=== PATIENT | female | born 1990 ===

== ENCOUNTER → 2022-07-17 13:05 | Outpatient (BNVA) | payer OTHER, SELFPAY | DX: Z13.89 Encounter for screening for other disorder (principal) | CPT/HCPCS: 87811; 99203; C9803 ==

== ENCOUNTER 2022-11-28 08:00 | Outpatient (RCR) | payer OTHER, SELFPAY | END 2022-11-28 09:08 | disposition home or self-care (01) | LOC: HO.PT 08:00 | PROVIDERS: PCP Family Medicine; Visit Provider Family Medicine | DX: M54.2 Cervicalgia (principal) | CPT/HCPCS: 97035; 97110; 97112; 97140; 97161 ==

== ENCOUNTER → 2023-01-02 09:09 | Outpatient (BNVA) | payer OTHER, SELFPAY | PROVIDERS: PCP Family Medicine; Visit Provider Surgery | DX: Z13.89 Encounter for screening for other disorder (principal) ==

== ENCOUNTER → 2023-02-13 13:33 | Outpatient (BNVA) | payer BC, SELFPAY | PROVIDERS: PCP Family Medicine; Visit Provider Surgery | DX: Z13.89 Encounter for screening for other disorder (principal) ==

== ENCOUNTER 2023-09-04 12:15 | Outpatient (REF) | payer BC, SELFPAY ==
[2023-09-05 09:09] LABS: Lyme Abs Screen <0.90 index
[2023-09-06 01:59] LABS: Ceruloplasmin 29 mg/dL (18-53)
== END 2023-09-04 12:16 | disposition home or self-care (01) ==
LOC: HO.LAB 12:15
PROVIDERS: Internal Medicine; PCP Family Medicine; Visit Provider Psychiatry & Neurology Neurology
DX: R20.0 Anesthesia of skin (principal)
CPT/HCPCS: 36415; 82390; 86617; 86618

== ENCOUNTER 2024-03-19 14:28 | Outpatient (REF) | payer BC, SELFPAY ==
[2024-03-19 15:19] LABS: Hematocrit 35.2 % (37.0-47.0); Mean Corpuscular HGB Conc 34.1 g/dl (31.0-35.0); Mean Corpuscular Hemoglobin 30.4 pg (27.0-33.0); Mean Corpuscular Volume 89.1 fL (80.0-98.0); Mean Platelet Volume 10.4 fL (9.4-12.3); Platelet Count 198 X10*3/uL (160-400); Red Blood Count 3.95 X10*6/uL (4.20-5.50); Red Cell Distribution Width 13.3 % (11.0-16.0); White Blood Count 12.4 X10*3/uL (4.8-10.8)
[2024-03-19 15:44] LABS: Creatinine Urine 217.71 mg/dL; Protein/Creatinine Ratio, Ur 0.06 (<0.2); Total Protein Urine Random 12 mg/dL (<12)
[2024-03-19 15:47] LABS: Alanine Aminotransferase 58 U/L (0-31); Aspartate Amino Transferase 26 U/L (5-31); Blood Urea Nitrogen 8 mg/dL (9-16); Estimated Glomerular Filt Rate > 60; Uric Acid 3.7 mg/dL (2.4-5.7)
== END 2024-03-19 14:29 | disposition home or self-care (01) ==
LOC: HO.LAB 14:28
PROVIDERS: Visit Provider Advanced Practice Midwife
DX: R10.11 Right upper quadrant pain (principal); Z34.90 Encounter for supervision of normal pregnancy, unspecified, unspecified trimester
CPT/HCPCS: 36415; 82565; 82570; 84156; 84450; 84460; 84520; 84550; 85027

== ENCOUNTER 2024-04-14 13:36 | Outpatient (REF) | payer OTHER, SELFPAY ==
[2024-04-14 14:46] LABS: Alanine Aminotransferase 17 U/L (0-31); Albumin Level 3.6 g/dL (3.5-5.0); Alkaline Phosphatase 70 U/L (39-117); Aspartate Amino Transferase 14 U/L (5-31); Bilirubin Direct 0.1 mg/dL (0.0-0.5); Bilirubin Total 0.3 mg/dL (0.0-1.0); Total Protein 6.4 g/dL (6.5-8.0)
== END 2024-04-14 13:37 | disposition home or self-care (01) ==
LOC: HO.LAB 13:36
PROVIDERS: Visit Provider Advanced Practice Midwife
DX: R94.5 Abnormal results of liver function studies (principal); Z34.90 Encounter for supervision of normal pregnancy, unspecified, unspecified trimester
CPT/HCPCS: 36415; 80076

== ENCOUNTER 2024-05-13 08:40 | Outpatient (REF) | payer OTHER, SELFPAY ==
[2024-05-13 10:23] LABS: Glucose Fasting 93 mg/dL (60-99)
[2024-05-13 11:30] LABS: Glucose 1 Hour 174 mg/dL
[2024-05-13 12:38] LABS: Glucose 2 Hour 129 mg/dL
[2024-05-13 13:36] LABS: Glucose 3 Hour 47 mg/dL
== END 2024-05-13 08:41 | disposition home or self-care (01) ==
LOC: HO.LAB 08:40
PROVIDERS: PCP Family Medicine; Visit Provider Obstetrics & Gynecology
DX: R89.9 Unspecified abnormal finding in specimens from other organs, systems and tissues (principal)
CPT/HCPCS: 36415; 82951

== ENCOUNTER 2024-06-23 07:46 | Outpatient (REF) | payer OTHER, SELFPAY ==
[2024-06-23 08:25] LABS: MANUAL DIFF FLAG NO
[2024-06-23 10:16] LABS: Basophils Percent Auto 0.5 % (0-2); Eosinophils Absolute Auto 0.2 X10*3/uL (0.0-0.4); Eosinophils Percent Auto 2.5 % (0-4); Hemoglobin 12.7 g/dl (12.0-16.0); Imm Gran Abs Auto 0.05 X10*3/uL (0.00-0.03); Imm Gran Pct Auto 0.6 % (0.0-0.4); Lymphocytes Absolute Auto 1.2 X10*3/uL (1.2-4.9); Lymphocytes Percent Auto 14.5 % (20-40); Mean Corpuscular HGB Conc 34.3 g/dl (31.0-35.0); Mean Corpuscular Hemoglobin 30.1 pg (27.0-33.0); Mean Corpuscular Volume 87.7 fL (80.0-98.0); Mean Platelet Volume 11.8 fL (9.4-12.3); Monocytes Absolute Auto 0.6 X10*3/uL (0.1-1.2); Monocytes Percent Auto 6.9 % (2-11); Platelet Count 147 X10*3/uL (160-400); Red Blood Count 4.22 X10*6/uL (4.20-5.50); Red Cell Distribution Width 12.6 % (11.0-16.0)
[2024-06-23 11:42] LABS: Alanine Aminotransferase 10 U/L (0-31); Aspartate Amino Transferase 12 U/L (5-31); Blood Urea Nitrogen 8 mg/dL (9-16); Estimated Glomerular Filt Rate > 60; Lactate Dehydrogenase 152 U/L (122-220); Uric Acid 4.7 mg/dL (2.4-5.7)
[2024-06-23 11:44] LABS: Creatinine Urine 114.61 mg/dL; Microalbum/Creatinine Ratio Ur 6.1 ug/mg cr (<30)
== END 2024-06-23 07:47 | disposition home or self-care (01) ==
LOC: HO.LAB 07:46
PROVIDERS: Advanced Practice Midwife; PCP Family Medicine; Visit Provider Midwife
DX: O26.619 Liver and biliary tract disorders in pregnancy, unspecified trimester (principal); O13.9 Gestational [pregnancy-induced] hypertension without significant proteinuria, unspecified trimester
CPT/HCPCS: 82043; 82239; 82565; 82570; 83615; 84450; 84460; 84520; 84550; 85025

== ENCOUNTER 2024-07-15 08:00 | Outpatient (RCR) | payer OTHER, SELFPAY | END 2024-08-26 08:11 | disposition home or self-care (01) | LOC: HO.PT 08:00 | PROVIDERS: PCP Family Medicine; Visit Provider Advanced Practice Midwife | DX: R39.81 Functional urinary incontinence (principal) | CPT/HCPCS: 97110; 97112; 97140; 97161 ==

== ENCOUNTER 2024-09-21 15:24 | Outpatient (REF) | payer OTHER, SELFPAY ==
[2024-09-21 18:14] LABS: Alanine Aminotransferase 104 U/L (0-31); Albumin Level 4.2 g/dL (3.5-5.0); Alkaline Phosphatase 130 U/L (39-117); Anion Gap 10 (12-20); Aspartate Amino Transferase 47 U/L (5-31); Bilirubin Total 0.2 mg/dL (0.0-1.0); Blood Urea Nitrogen 20 mg/dL (9-16); Calcium 9.1 mg/dL (8.4-10.2); Carbon Dioxide 28 mmol/L (22-29); Chloride 106 mmol/L (96-108); Estimated Glomerular Filt Rate > 60; Glucose Random 100 mg/dL (60-115); Potassium 3.9 mmol/L (3.3-5.1); Sodium 140 mmol/L (135-145); Total Protein 7.1 g/dL (6.5-8.0)
== END 2024-09-21 15:25 | disposition home or self-care (01) ==
LOC: HO.LAB 15:24
PROVIDERS: PCP Family Medicine; Visit Provider Family Medicine
DX: R74.01 Elevation of levels of liver transaminase levels (principal)
CPT/HCPCS: 36415; 80053

== ENCOUNTER 2024-10-20 11:02 | Outpatient (REF) | payer OTHER, SELFPAY ==
[2024-10-20 11:32] LABS: MANUAL DIFF FLAG NO
[2024-10-20 12:08] LABS: Basophils Absolute Auto 0.1 X10*3/uL (0.0-0.2); Basophils Percent Auto 0.8 % (0-2); Eosinophils Absolute Auto 0.5 X10*3/uL (0.0-0.4); Eosinophils Percent Auto 5.8 % (0-4); Hematocrit 41.4 % (37.0-47.0); Hemoglobin 14.1 g/dl (12.0-16.0); Imm Gran Abs Auto 0.04 X10*3/uL (0.00-0.03); Imm Gran Pct Auto 0.5 % (0.0-0.4); Lymphocytes Absolute Auto 1.7 X10*3/uL (1.2-4.9); Lymphocytes Percent Auto 18.8 % (20-40); Mean Corpuscular HGB Conc 34.1 g/dl (31.0-35.0); Mean Corpuscular Hemoglobin 30.2 pg (27.0-33.0); Mean Corpuscular Volume 88.7 fL (80.0-98.0); Mean Platelet Volume 10.4 fL (9.4-12.3); Monocytes Absolute Auto 0.5 X10*3/uL (0.1-1.2); Monocytes Percent Auto 5.4 % (2-11); Neutrophils Absolute Auto 6.1 x10*3/uL (2.0-8.3); Neutrophils Percent Auto 68.7 % (45-73); Platelet Count 224 X10*3/uL (160-400); Red Blood Count 4.67 X10*6/uL (4.20-5.50); White Blood Count 8.9 X10*3/uL (4.8-10.8)
[2024-10-20 12:14] LABS: Prothrombin Time 11.3 SEC (10.9-12.4)
[2024-10-20 12:48] LABS: Alanine Aminotransferase 81 U/L (0-31); Albumin Level 4.3 g/dL (3.5-5.0); Alkaline Phosphatase 128 U/L (39-117); Anion Gap 9 (12-20); Aspartate Amino Transferase 35 U/L (5-31); Bilirubin Total 0.3 mg/dL (0.0-1.0); Blood Urea Nitrogen 21 mg/dL (9-16); Calcium 9.7 mg/dL (8.4-10.2); Carbon Dioxide 30 mmol/L (22-29); Chloride 105 mmol/L (96-108); Estimated Glomerular Filt Rate > 60; Glucose Random 86 mg/dL (60-115); Potassium 4.3 mmol/L (3.3-5.1); Sodium 140 mmol/L (135-145); Total Protein 7.4 g/dL (6.5-8.0)
== END 2024-10-20 11:03 | disposition home or self-care (01) ==
LOC: HO.LAB 11:02
PROVIDERS: PCP Family Medicine; Visit Provider Family Medicine
DX: R74.8 Abnormal levels of other serum enzymes (principal); Z79.01 Long term (current) use of anticoagulants
CPT/HCPCS: 36415; 80053; 85025; 85610

== ENCOUNTER 2024-10-22 07:46 | Outpatient (REF) | payer OTHER, SELFPAY ==
--- NOTE | ~2024-10-22 | US_ITS ---
EXAMINATION: US ABDOMEN COMPLETE CLINICAL INFORMATION: Elevated LFTs. COMPARISON: None available. TECHNIQUE: Real-time imaging of the abdominal viscera. FINDINGS: PANCREAS: The visualized portion of the pancreas head and body are normal, portion of the pancreatic body and tail, not visualized are obscured by bowel gas. ABDOMINAL AORTA: The proximal, mid, and distal segments are normal in caliber. INFERIOR VENA CAVA: Visualized portions are normal. LIVER: The liver is normal in size. The liver contour is normal. Mildly echogenic liver parenchyma, this can be seen in the setting of hepatic steatosis or liver parenchymal disease. No focal hepatic lesion. There is no intrahepatic biliary duct dilatation seen. GALLBLADDER: The gallbladder is physiologically distended without evidence of stones, sludge, polyps, wall thickening or pericholecystic fluid. COMMON BILE DUCT: Normal in caliber measuring 0.5 cm in diameter. RIGHT KIDNEY: No hydronephrosis. No renal calculi or focal parenchymal lesions. The kidney measures 10.0 cm in maximum dimension. LEFT KIDNEY: No hydronephrosis. No renal calculi or focal parenchymal lesions. The kidney measures 10.5 cm in maximum dimension. SPLEEN: The spleen measures 12.3 cm in maximum dimension. FREE FLUID: None. US/US abdomen complete IMPRESSION: * Mildly echogenic liver parenchyma, this can be seen in the setting of hepatic steatosis. Please correlate clinically. * Ultrasound otherwise normal. No ultrasound explanation for patient's pain symptoms. Electronically signed by: Crescencio Riggins MD 10/25/2024 06:04 PM [facility]
== END 2024-10-22 07:47 | disposition home or self-care (01) ==
LOC: HO.US 07:46
PROVIDERS: PCP Family Medicine; Visit Provider Family Medicine
DX: R74.8 Abnormal levels of other serum enzymes (principal)
CPT/HCPCS: 76700

== ENCOUNTER 2024-12-08 11:53 | Outpatient (RCR) | payer OTHER, SELFPAY | END 2025-01-21 14:57 | disposition home or self-care (01) | LOC: HO.PT 11:53 | PROVIDERS: PCP Family Medicine; Visit Provider Advanced Practice Midwife | DX: R10.2 Pelvic and perineal pain (principal) | CPT/HCPCS: 97110; 97112; 97140; 97161; 97530 ==

== ENCOUNTER 2025-03-07 10:31 | Outpatient (AMB) | payer OTHER, SELFPAY ==
--- NOTE | 2025-03-07 10:33 | A.OFFVIS_ITS ---
Vital Signs 03/07/25 10:46 Height 5 ft 4 in Weight 170 lb BMI 29.2 BP 131/66 Blood Pressure Location Lt brachial Position Sitting Pulse 68 Intake Visit Reasons: Elevated Liver Enzymes Intake Note: Shala presents in the office as a new patient for elevated LFTs. CC: VShe states that during she had elevated LFT and they never went down - she had an US and now she is here. Internal Medicine Veterinary Technician Required: No Allergies No Known Allergies Allergy (Verified 02/13/23 13:42) HPI Comments Details: 35 y.o F with PMH of recent 07/2024 with criteria met for severe pre- eclampsia who is here for elevated LFTs. Reports had high BP in the week prior to delivering her baby. Was then also noted to have abnormal kidney function and LFTs. Was induced and delivered healthy baby boy. LFTs 10/2024: AST 36 ALT 75 T bili 0.2 Currently no abd pain, N,V. US Abd reviewed ? steatosis. PFSH Medical History Family history of breast cancer Family History Mother Breast cancer, Onset Age: 50 Maternal Grandmother Ovarian cancer, Onset Age: 60 Social History Alcohol intake: current Alcohol intake frequency: holidays/special occasions only Patient Tobacco Use Status: Never used Tobacco Female Reproductive History Menstrual Age of Menarche: 13 Review of Systems Const All systems reviewed & are unremarkable except as noted in HPI and below Physical Exam Vital Signs: Last Vital Signs Pulse 68 03/07/25 10:46 BP 131/66 03/07/25 10:46 BMI result Body Mass Index 29.2 No apparent distress Nonicteric Abdomen soft, nondistended Alert and oriented x3, normal gait Assessment & Plan Assessment & Plan (1) Elevated LFTs: Code(s): R79.89 - Other specified abnormal findings of blood chemistry Category: Medical (2) Pre-eclampsia: Code(s): O14.90 - Unspecified pre-eclampsia, unspecified trimester Category: Medical Plan Reviewed that likely had elevated LFTs 2/2 pre eclampsia as LFTs in jun (one month prior) were normal. However, since has mild persistent elevation of transaminases in Oct, will pursue w.up to exclude autoimmune hepatitis, infectious hep, iron overload etc. Plan: - Labs ordered - Follow up in 2 months if actionable results Orders: Orders Alpha 1 Anti-trypsin Today R7.89 - Other specified abnormal findings of blood chemistry LYLE Reflex Titer and Pattern Today R79.89 - Other specified abnormal findings of blood chemistry Ferritin Today R79.89 - Other specified abnormal findings of blood chemistry Hemoglobin A1c Today R79.89 - Other specified abnormal findings of blood chemistry Hepatitis A IgG Today R79.89 - Other specified abnormal findings of blood chemistry Hepatitis B Surface Antigen Today R79.89 - Other specified abnormal findings of blood chemistry IRON PROFILE Today R79.89 - Other specified abnormal findings of blood chemistry Lipid Panel Today R79.89 - Other specified abnormal findings of blood chemistry Transglutaminase IgA Today R79.89 - Other specified abnormal findings of blood chemistry TSH reflex Free T4 Today R79.89 - Other specified abnormal findings of blood chemistry Complete Blood Count no Diff Today R79. - Other specified abnormal findings of blood chemistry Comprehensive Met. Panel Today R79.89 - Other specified abnormal findings of blood chemistry Alpha Fetoprotein Today R79.89 - Other specified abnormal findings of blood chemistry Ceruloplasmin Today R79.89 - Other specified abnormal findings of blood chemistry Hepatitis B Core Antibody Today R79.89 - Other specified abnormal findings of blood chemistry Hepatitis B Surface Antibody Today R79.89 - Other specified abnormal findings of blood chemistry Hepatitis C Antibody Reflex Today K74.60 - Unspecified cirrhosis of liver, R7. - Other specified abnormal findings of blood chemistry HIV Ab/Ag Today R79.89 - Other specified abnormal findings of blood chemistry Immunoglobulin A Today R79.89 - Other specified abnormal findings of blood chemistry Immunoglobulin G Today R79.89 - Other specified abnormal findings of blood chemistry Liver Kidney Microsomal Ab Today R79.89 - Other specified abnormal findings of blood chemistry Mitochondrial Antibody Today R79.89 - Other specified abnormal findings of blood chemistry Phosphatidylethanol, Blood Today R79.89 - Other specified abnormal findings of blood chemistry Prothrombin Time INR Today R79.89 - Other specified abnormal findings of blood chemistry Smooth Muscle Antibody Today R79.89 - Other specified abnormal findings of blood chemistry Coding Level of Care Code New Pt Level 4 (80123) Diagnoses Elevated LFTs Pre-eclampsia O14.90
[2025-03-07 10:46] VITALS: BP 131/66; PULSE 68; BMI 29.2
== END 2025-03-07 11:25 | disposition home or self-care (01) ==
LOC: HO.HGI 10:31
PROVIDERS: PCP Family Medicine; Visit Provider Internal Medicine
DX: R79.89 Other specified abnormal findings of blood chemistry (principal); O14.90 Unspecified pre-eclampsia, unspecified trimester
CPT/HCPCS: 99204

== ENCOUNTER 2025-05-05 12:00 | Outpatient (REF) | payer OTHER, SELFPAY ==
[2025-05-05 13:31] LABS: INTERNATIONAL NORM RATIO 1.0 (0.9-1.1); Prothrombin Time 11.5 SEC (10.9-12.4)
[2025-05-05 13:32] LABS: Hematocrit 43.3 % (37.0-47.0); Hemoglobin 14.6 g/dl (12.0-16.0); Mean Corpuscular HGB Conc 33.7 g/dl (31.0-35.0); Mean Corpuscular Hemoglobin 29.5 pg (27.0-33.0); Mean Corpuscular Volume 87.5 fL (80.0-98.0); NRBC Abs Auto 0.000 X10*3/uL (0.0-0.012); NRBC Pct Auto 0.0 /100WBC (0.0-0.2); Platelet Count 247 X10*3/uL (160-400); Red Blood Count 4.95 X10*6/uL (4.20-5.50); White Blood Count 7.9 X10*3/uL (4.8-10.8)
[2025-05-05 13:38] LABS: Hemoglobin A1C 131.5722 umol/L; Total Hemoglobin (HGBA1C) 3845.0774 umol/L
[2025-05-05 14:14] LABS: Alanine Aminotransferase 31 U/L (0-31); Albumin Level 4.7 g/dL (3.5-5.0); Alkaline Phosphatase 106 U/L (39-117); Anion Gap 12 (12-20); Aspartate Amino Transferase 21 U/L (5-31); Blood Urea Nitrogen 18 mg/dL (9-16); Calcium 9.4 mg/dL (8.4-10.2); Carbon Dioxide 28 mmol/L (22-29); Chloride 103 mmol/L (96-108); Cholesterol 223 mg/dL (<200); Estimated Glomerular Filt Rate > 60; HDL Cholesterol 45 mg/dL (>40); Iron 101 mcg/dL (30-160); Percent Iron Saturation 29 % (15-50); Potassium 4.0 mmol/L (3.3-5.1); Sodium 139 mmol/L (135-145); Total Iron Binding Capacity 352 mcg/dL (228-428); Total Protein 7.5 g/dL (6.5-8.0); Triglycerides 110 mg/dL (<150); Unsaturated Iron Binding 251 ug/dL
[2025-05-05 14:34] LABS: Ferritin 47 ng/mL (10-122)
[2025-05-06 03:53] LABS: ~Hepatitis A Antibody IgG 6.95 S/CO (0.00-0.99)
[2025-05-06 04:14] LABS: HBS Num1 57.16 mIU/mL (0-7.99); HBc Num1 0.13 S/CO (0.00-0.79); HBsAGNum1 0.50 S/CO (0.00-0.99); HIV Num 1 0.06 S/CO (0.00-0.99); Hepatitis B Surface Antigen Negative (Negative); ~HepC Num1 0.09 S/CO (0.00-0.79); ~Hepatitis B Surface Antibody REACTIVE (Nonreactive); ~Hepatitis C Antibody Nonreactive (Nonreactive)
[2025-05-06 09:43] LABS: Immunoglobulin A 183 mg/dL (47-310); Immunoglobulin G 1013 mg/dL (600-1640)
[2025-05-09 12:52] LABS: Liver Kidney Microsomal Ab <=20.0 U (<=20.0)
[2025-05-11 10:57] LABS: Phosphatidylethanol 16:0-18:1 NEGATIVE; Phosphatidylethanol 16:0-18:2 NEGATIVE
[2025-05-12 12:28] LABS: Anti Nuclear Antibody Screen POSITIVE (NEGATIVE); Anti Nuclear Antibody Titer 1:40 titer
== END 2025-05-05 12:01 | disposition home or self-care (01) ==
LOC: HO.LAB 12:00
PROVIDERS: PCP Family Medicine; Visit Provider Internal Medicine
DX: K74.60 Unspecified cirrhosis of liver (principal); R79.89 Other specified abnormal findings of blood chemistry
CPT/HCPCS: 36415; 80053; 80061; 80321; 82103; 82105; 82390; 82728; 82784; 83036; 83540; 84443; 85027; 85610; 86015; 86038; 86039; 86364; 86376; 86381; 86704; 86706; 86708; 86803; 87340; 87389

== ENCOUNTER → 2025-05-11 13:03 | Outpatient (AMB) | payer OTHER, SELFPAY ==
--- NOTE | 2025-05-11 13:03 | MHC.OFFVIS ---
Intake Visit Reasons: labs Intake Note: Shala presents as a telehealth today to go over results to her blood work. CC: She is not having any concerns at this time. Solar Field Service Technician Required: No Allergies No Known Allergies Allergy (Verified 05/11/25 13:03) HPI Comments Details: 35 y.o F with PMH of recent 07/2024 with criteria met for severe pre-eclampsia who is here for elevated LFTs. Reports had high BP in the week prior to delivering her baby. Was then also noted to have abnormal kidney function and LFTs. Was induced and delivered healthy baby boy. LFTs 10/2024: AST 36 ALT 75 T bili 0.2 Currently no abd pain, N,V. US Abd reviewed ? steatosis. 05/11/25: Patient is following up today as tele health visit. No acute GI issues. Labs reviewed, all normal, LYLE pending. [facility] Medical History Family history of breast cancer Family History Mother Breast cancer, Onset Age: 50 Maternal Grandmother Ovarian cancer, Onset Age: 60 Social History Alcohol intake: current Alcohol intake frequency: holidays/special occasions only Patient Tobacco Use Status: Never used Tobacco Female Reproductive History Menstrual Age of Menarche: 13 Review of Systems Const All systems reviewed & are unremarkable except as noted in HPI and below Physical Exam Vital Signs: Video visit: No acute distress No icterus noted No facial asymmetry Speaking in full sentences Telehealth Telehealth Telehealth Platform: [facility] Location of provider rendering services: practice address Location of patient: address on file Patient Identification confirmed using: Name, : Yes Telehealth method: video Patient verbally consented to treatment: Yes Patient verbally consented to billing insurance company: Yes Patient informed of any privacy concerns related to visit: Yes Minutes spent on Phone/Video with Pt.: 7 Assessment & Plan Assessment & Plan (1) Elevated LFTs: Code(s): R79.89 - Other specified abnormal findings of blood chemistry Category: Medical (2) Pre-eclampsia: Code(s): O14.90 - Unspecified pre-eclampsia, unspecified trimester Category: Medical Plan LFTs have now normalized. Again reinforced that likely had elevated LFTs 2/2 pre eclampsia. Will follow up on LYLE, otherwise no further work up needed. Coding Level of Care Code Tele Est Pt Level 3 (67223) Diagnoses Elevated LFTs R79.89 Pre-eclampsia O14.90
== END ==
LOC: HO.HGI 13:03
PROVIDERS: PCP Family Medicine; Visit Provider Internal Medicine
DX: R79.89 Other specified abnormal findings of blood chemistry (principal)
CPT/HCPCS: 99213